=== PATIENT | female | born 1985 | race Caucasian/White ===

== ENCOUNTER → 2024-11-10 | Outpatient (CLI) | payer OTHER ==
--- NOTE | 2024-11-10 17:26 | MR ---
EXAMINATION TYPE: MR orbits wo/w con DATE OF EXAM: 11/10/2024 5:12 PM COMPARISON: None. CLINICAL INDICATION: Female, 39 years old with history of C44.1192 BASAL CELL CARCINOMA SKIN/ LEFT LO WER EYE, Basal cell carcinoma skin, left lower eye. IV Contrast: 8.5 cc Gadobutrol (None if empty) TECHNIQUE: Multiplanar, multisequence images of the brain and brainstem is performed without and with IV contras t, utilizing 8.5 mL intravenous Gadobutrol . FINDINGS: The globes appear intact. There is slight displacement of the left globe posteriorly compar ed to the right. Signal intensity of the globes and optic nerves are within normal limits. The intra orbital fat appears preserved. Both lacrimal glands are unremarkable. The extraocular muscles appear symmetric. There is a focal region of low T1/isointense T2 signal within the skin of the left lower eye lid region. There is corresponding enhancement after contrast administration. This grossly measur es 2.8 x 0.9 x 0.6 cm (series 701, image 6 and series 601, image 9). Mild surrounding edema. Mild muc osal thickening of the anterior right ethmoid sinus. IMPRESSION: Enhancing left lower eyelid lesion likely corresponding to reported basal cell carcinoma. Mild surrounding edema without definitive extension into the globe or intraorbital fat. [facility], , 11/10/2024 5:24 PM
== END | disposition home or self-care (01) ==
LOC: RADMRIMAIN 16:20
PROVIDERS: ATTEND Ophthalmology
DX: C44.1192 Basal cell carcinoma of skin of left lower eyelid, including canthus (principal); R60.0 Localized edema
CPT/HCPCS: 70543; A9585